=== PATIENT | male | born 1985 | race Two or more races ===

== ENCOUNTER 2024-12-13 18:37 | Emergency (ER) | payer MEDICAID ==
[~2024-12-13] VITALS: Ht 180.3 cm; Wt 104.3 kg
[2024-12-13] MEDS: IV NS 0.9% 1,000 ML BAG IV ONE (19:00)
[2024-12-13 19:21] LABS: BASOPHILS % (AUTO) 0.6 % (0.0-2.0); EOSINOPHILS # (AUTO) 0.1 K/uL (0.0-0.7); EOSINOPHILS % (AUTO) 1.5 % (0.0-6.0); HEMATOCRIT 46 % (39-51); HEMOGLOBIN 15.1 g/dL (13.5-17.5); LYMPHOCYTES # (AUTO) 2.2 K/uL (0.8-4.8); LYMPHOCYTES % (AUTO) 39.2 % (20.0-44.0); MEAN CORPUSCULAR HEMOGLOBIN 27 PG (26.0-33.0); MEAN CORPUSCULAR HGB CONC 33 g/dl (31.0-36.0); MEAN CORPUSCULAR VOLUME 82 fL (80-96); MONOCYTES # (AUTO) 0.5 K/uL (0.1-1.30); MONOCYTES % (AUTO) 9.8 % (2.0-12.0); NEUTROPHILS # (AUTO) 2.7 K/uL (1.8-8.9); NEUTROPHILS % (AUTO) 48.9 % (43.0-81.0); PLATELET COUNT (AUTO) 254 K/uL (150-450); RED BLOOD CELL COUNT(AUTO) 5.56 MIL/uL (4.5-6.0); RED CELL DISTRIBUTION WIDTH 15.4 % (11.5-15.0); WHITE BLOOD COUNT (AUTO) 5.6 K/uL (4.3-11.0)
[2024-12-13 19:30] LABS: CALCIUM, SERUM 8.9 mg/dL (8.5-10.1); CARBON DIOXIDE 30 mmol/L (21-32); CHLORIDE 100 mmol/L (98-107); CREATININE 1.2 mg/dL (0.6-1.3); GLUCOSE 100 mg/dL (74-106); POTASSIUM 3.8 mmol/L (3.5-5.1); SODIUM SERUM 140 mmol/L (136-145); UREA NITROGEN, BLOOD 9 mg/dL (7-18)
[2024-12-13 23:04] VITALS: BP 169/110; TEMP 99.5; O2SAT 98
== END 2024-12-13 23:04 | disposition home or self-care (01) ==
LOC: ER 18:43
DX: R07.89 Other chest pain (principal); R00.2 Palpitations; R42 Dizziness and giddiness; I10 Essential (primary) hypertension
CPT/HCPCS: 99285; 96360; 71045; 93005 ×3; 85025; 80048; 36415; 84484 ×2; J7030